=== PATIENT | male | born 1995 | race Caucasian/White ===

== ENCOUNTER 2023-03-20 17:11 | Emergency (ER) | payer SELFPAY ==
[2023-03-20 17:16] VITALS: BP 161/94; PULSE 99; TEMP 36.6; O2SAT 98
--- NOTE | 2023-03-20 17:27 | ED.GENADULT ---
HPI - General Adult General Chief complaint: Skin/Abscess/Foreign Body Stated complaint: abscess in middle of back Time Seen by Provider: 03/20/23 17:18 History of Present Illness HPI narrative: Healthy 28yo man with abscess from back drained 3 days ago, repacked yesterday, presents for wound check after girlfriend removed packing today and thought there was an excessive amount of blood and fluid that came out and was on the dressing. No active bleeding. No pain, fevers, chills. Related Data Home Medications Medication Instructions Recorded Confirmed doxycycline monohydrate 100 mg 100 mg PO BID 03/20/23 03/20/23 capsule Allergies Allergy/AdvReac Type Severity Reaction Status Date / Time No Known Allergies Allergy Verified 03/20/23 17:47 Review of Systems Review of Systems: All systems reviewed & are unremarkable except as noted in HPI and below Constitutional: Constitutional: Denies chills and Denies fever(s) ENT: Denies dysphagia Cardiovascular: Cardiovascular: Denies chest pain Respiratory: Respiratory: Denies dyspnea Exam Const: General: healthy appearing and no acute distress Nutritional Appearance: well nourished Eyes: Conjunctivae: conjunctivae normal Neck: Neck: no meningeal signs Other: supple Resp: Effort & Inspection: normal respiratory effort Cardio: Rate: regular rate Skin: General skin exam: normal color, no jaundice and no pallor Other: upper back skin incision site with serosanguineous strikethrough on the existing dressing, otherwise clean, dry, with no surrounding cellulitis. No hemorrhage. No active fluid expressing from wound. Course Vital Signs Vital signs: Vital Signs Temperature 36.6 C 03/20/23 17:16 Pulse Rate 99 03/20/23 17:16 Blood Pressure 161/94 H 03/20/23 17:16 Pulse Oximetry 98 03/20/23 17:16 Oxygen Delivery Room Air 03/20/23 17:16 Temperature 36.7 C 03/20/23 17:54 Pulse Rate 88 03/20/23 17:54 Respiratory Rate 20 03/20/23 17:54 Blood Pressure 148/88 H 03/20/23 17:54 Pulse Oximetry 98 03/20/23 17:54 Oxygen Delivery Room Air 03/20/23 17:54 Medical Decision Making [facility] Narrative Medical decision making narrative: wound check with bloody drainage DDx likely seroma, residual sebaceous cyst drainage, no evidence of reaccumulated infection, cellulitis, or recurrent abscess. Continue home dressing changes and current outpatient abx. Vital Signs Vital Signs: Vital Signs Temperature 36.6 C 03/20/23 17:16 Pulse Rate 99 03/20/23 17:16 Blood Pressure 161/94 H 03/20/23 17:16 Pulse Oximetry 98 03/20/23 17:16 Oxygen Delivery Room Air 03/20/23 17:16 Temperature 36.7 C 03/20/23 17:54 Pulse Rate 88 03/20/23 17:54 Respiratory Rate 20 03/20/23 17:54 Blood Pressure 148/88 H 03/20/23 17:54 Pulse Oximetry 98 03/20/23 17:54 Oxygen Delivery Room Air 03/20/23 17:54 Discharge Plan Discharge Clinical Impression: Encounter for post surgical wound check Patient Disposition: Home, Self-Care Condition: Improved Instructions: Antibiotic Form Additional Instructions: Your wound appears to be healing very well. Continue your home dressing changes and outpatient antibiotics as prescribed. You can expect continued blood-tinged draining for a few more days until the wound more completely closes. Prescriptions: No Action doxycycline monohydrate 100 mg capsule 100 mg PO BID Follow-up/Referrals: UNKNOWN,DOCTOR [Primary Care Provider] - Time of Disposition: 17:32
[2023-03-20 17:54] VITALS: BP 148/88; PULSE 88; RESP 20; TEMP 36.7; O2SAT 98
== END 2023-03-20 17:55 | disposition home or self-care (01) ==
LOC: CHSED 17:46
PROVIDERS: Emergency Provider Emergency Medicine
DX: L02.212 Cutaneous abscess of back [any part, except buttock and flank] (principal)
CPT/HCPCS: 99281